=== PATIENT | female | born 1990 | race Caucasian/White ===

== ENCOUNTER 2019-06-14 11:14 | Emergency (ER) | payer OTHER, SELFPAY ==
[2019-06-14 11:15] VITALS: BP 111/73; PULSE 107; RESP 16; TEMP 36.6; O2SAT 97; BMI 25.9
--- NOTE | 2019-06-14 11:47 | US_ITS ---
STUDY: ABDOMINAL ULTRASOUND - RIGHT UPPER QUADRANT REASON FOR VISIT: Female, 29 years old right upper quadrant pain TECHNIQUE: Ultrasound evaluation of the right upper quadrant was performed with real-time and static peterson-scale imaging. TECHNICAL QUALITY: Adequate. COMPARISON: None. FINDINGS: Liver: The liver measures 14.7 cm. There is normal echogenicity of the liver. The bile ducts are within normal limits. There is hepatic color flow. The direction of portal flow is hepatopetal. There is no demonstrated mass lesion. Gallbladder: Normal distended gallbladder. The gallbladder wall measures 3 mm. There is a negative sonographic Bhandari's sign. There is no pericholecystic fluid. There are no gallstones. Common Bile Duct (C.B.D.): The common bile duct measures 2 mm. Pancreas: Normal size of the head, body and tail of the pancreas. There is normal echogenicity of the pancreas. There is no demonstrated pancreatic mass or cyst. Right Kidney: Normal size of the right kidney. The right kidney measures 10.4 cm. Normal renal cortex. The right cortex measures 1.6 cm. There is no demonstrated renal mass or cyst. There is no right hydronephrosis. US/Abdomen Limited IMPRESSION: No acute findings Electronically Signed: Isra Durham DO at 14:04 EDT Tel , Service support ,
[2019-06-14 12:07] LABS: Absolute Lymphocyte Count 1.58 X10^3/uL (0.83-4.51); Absolute Neutrophil Count 4.1 X10^3/uL (2.0-7.7); Basophil# 0.04 X10^3/uL; Basophil% 0.6 % (0-1); Eosinophil# 0.08 X10^3/uL; Eosinophils% 1.3 % (0-5); Hematocrit 43.3 % (37-47); Hemoglobin 14.8 g/dL (12.0-15.0); Lymphocyte # 1.58 X10^3/ul (4.0); Lymphocyte % 24.8 % (19-41); Mean Corp Hgb Conc 34.2 g/dL (32-36); Mean Corpuscular Hgb 33.3 pg (27.0-32.0); Mean Corpuscular Volume 97.5 fL (81-99); Mean Platelet Vol. 10.4 fl (6.2-12.0); Monocyte# 0.52 X10^3/uL; Monocyte% 8.2 % (0-10); NRBC Flagged by Analyzer 0 % (0-5); Neutrophil # 4.14 X10^3/uL (2.7-7.7); Neutrophil % 64.9 % (47-70); Platelet Count 219 K/mm3 (150-450); RBC Distribution Width SD 43.4 fl (35.1-43.9); Red Blood Count 4.44 M/mm3 (4.2-5.4); White Blood Count 6.4 K/mm3 (4.4-11.0)
[2019-06-14] MEDS: proMETHazine 25 MG/ML Syringe 6.25 MG IV (12:11)
[2019-06-14] MEDS: Morphine 4 MG/ML Syringe IV (12:12)
[2019-06-14] MEDS: 0.9% Normal Saline 1,000 ML 125 ML IV (12:13)
[2019-06-14 12:22] LABS: ALB/GLOB Ratio 1.2 RATIO (0.9-2.4); AST(SGOT) 15 U/L (15-37); Alanine Aminotransfer ALT/SGPT 19 U/L (13-56); Alkaline Phosphatase 85 U/L (45-117); Anion Gap 3 (5-15); BUN 7 mg/dL (7-18); BUN/Creat Ratio 10.5 RATIO (10-20); Calcium,Total 9.2 mg/dL (8.5-10.1); Chloride 112 mmol/L (98-107); Creatinine, Serum 0.67 mg/dL (0.55-1.02); EST Glomerular Filtration Rate 110 mL/min (>60); Est Glom Filt Rate - Afr Amer 133 mL/min (>60); Estimated Creatinine Clearance 110.48 ml/min; Globulin 3.3 g/dL (2.2-4.2); Glucose 90 mg/dL (74-106); Lipase 188 U/L (73-393); Potassium 3.5 mmol/L (3.5-5.1); Protein, Total 7.3 g/dL (6.4-8.2); Sodium Level 140 mmol/L (136-145)
[2019-06-14 12:27] LABS: Bacteria 0 SEEN /hpf (None Seen); Color, Urine Yellow (Yellow); Glucose, Dipstick Normal (Normal); Ketone-Dipstick Negative (Negative); Leukocyte Esterase-Dipstick Negative /ul (Negative); Mucous, Urine 0 SEEN /hpf (<or=2+); Nitrite-Dipstick Negative (Negative); Occult Blood-Urine Negative /ul (Negative); Protein-Dipstick Negative (Negative); Red Blood Cells-Urine 0 SEEN /hpf (0-5); Urine Bilirubin Dipstick Negative (Negative); Urine Clarity Clear (Clear); Urine Urobilinogen Normal (Normal); White Blood Cells 0 SEEN /hpf (0-5)
[2019-06-14 12:30] LABS: Internal QC Validated? YES +Cl - CLEAR BKGD; Pregnancy, Urine Negative Negative
[2019-06-14 12:41] LABS: Squamous Epithelial Cells - UA 0-5 SEEN /hpf (5-10)
[2019-06-14 14:18] VITALS: BP 106/65; PULSE 78; RESP 16; O2SAT 99
--- NOTE | 2019-06-14 14:23 | ED.VIS.GI ---
History of Present Illness Informant: Patient, Family - Abdominal Pain/Flank Pain Onset: Yesterday Context: Gradual Onset Timing: Intermittent Quality: Sharp Location: RUQ Current Severity: Moderate Maximum Severity: Severe Worsened by: Food Relieved by: Remaining Still - Nausea/Vomiting/Emesis GI Symptom: Nausea, Vomiting Onset: Today Quality: Nonbilious Severity: Moderate - Diarrhea/Melena/Hematochezia GI Symptom: Diarrhea. Negative for: Melena, Hematochezia Onset: Yesterday Stool Quality: Loose, Watery Severity: Mild Associated Symptoms: Negative for: Dysuria, Frequency, Hematuria, Urgency Narrative: 29-year-old female presents to the emergency department with right upper quadrant abdominal pain. She has been having any symptoms and she had dinner yesterday. They are intermittent sharp and stabbing. In the right upper quadrant rating to her right shoulder. She has had one episode of nonbloody emesis. One episode of loose watery stool. No hematemesis or coffee-ground emesis. No melena or hematochezia. No fevers. No chest pain or shortness of breath. No lightheadedness or dizziness. No coughing or back pain. No urinary symptoms. Prior similar symptoms: Yes Recent Illness/Hospitalization: No <Román Vines - Last Filed: 06/14/19 14:23> <Alvin Valdes - Last Filed: 06/14/19 16:16> Chief Complaint: Abd Pain Past Medical History Prior records reviewed: Yes Past Medical History: - - lupus Surgical History: no surgical history Smoking Status: Current every day smoker <Román Vines - Last Filed: 06/14/19 14:23> <Alvin Valdes - Last Filed: 06/14/19 16:16> - Allergies and Home Meds Allergies/Adverse Reactions: Allergies amoxicillin Allergy (Verified 06/14/19 11:17) Hives Penicillins Allergy (Verified 06/14/19 11:17) Hives omeprazole Adverse Reaction (Verified 06/14/19 11:17) Hives Primary Care Physician: Carlo Rick MD [NON-STAFF] - Care Physician,No Primary [Primary Care Provider] - Review of Systems All systems negative except as indicated General: Denies: Chills, Fever Cardiovascular: Denies: Chest pain Respiratory: Denies: Dyspnea Gastrointestinal: Reports: Abdominal pain, Nausea, Vomiting, Diarrhea Genitourinary: Denies: Dysuria, Hematuria, Frequency <YuriylennyRomán - Last Filed: 06/14/19 14:23> Physical Exam Vital Signs/Narrative: Vital Signs Temp Pulse Resp BP Pulse Ox 06/14/19 14:18 78 16 106/65 99 06/14/19 11:15 98 F 107 H 16 111/73 97 Inital Vital Signs reviewed: Yes General: Well nourished, Well developed, No Acute Distress Head: Normocephalic, Atraumatic Eyes: Perrl, EOMI ENT: Moist mucous membranes Neck: Supple, Nontender Cardiovascular: Regular rate, Regular rhythm, No murmurs Respiratory: No distress, CTA bilaterally, Chest nontender Abdomen: Soft, Nondistended, Normal bowel sounds, No masses, Tender - TTP RUQ. negative alarcon sign Back: Nontender, Normal Inspection Extremities: Nontender, No edema Skin: Normal color, No rash Neurological: Alert, Oriented x3 <YuriylennyRomán - Last Filed: 06/14/19 14:23> Vital Signs/Narrative: Vital Signs Pulse Resp BP Pulse Ox 06/14/19 14:18 78 16 106/65 99 <Alvin Valdes - Last Filed: 06/14/19 16:16> Diagnostic/Tx/Re-eval US: RUQ, Abdomen - Medical Decision Making IV was established. Patient given IV fluids, patient given IV Zofran and morphine. CBC, CMP, and lipase unremarkable Urinalysis negative. Right upper quadrant ultrasound unremarkable. On repeat evaluation patient feels improved. Repeat abdominal exam soft, and nontender. Patient is able to tolerate by mouth. Discussed with patient will need to follow-up with her doctor for continued outpatient work-up including a HIDA scan. Return precautions to the emergency department were reviewed and the patient was discharged <MohinderRomán - Last Filed: 06/14/19 14:23> - Medical Decision Making I discussed management plan with the physician acute care nursing assistant. I reviewed the physician acute care nursing assistant's note and agree with the documented findings and plan of care. Patient presents with right upper quadrant pain. Basic labs are negative. Gallbladder ultrasound negative. Recommend follow-up with primary care for potential HIDA scan. Alvin Valdes DO, MS, FACEP <Alvin Valdes - Last Filed: 06/14/19 16:16> ED Disposition <Román Vines - Last Filed: 06/14/19 14:23> <Alvin Valdes - Last Filed: 06/14/19 16:16> - Plan for ED Patient: Disposition: Home or Assisted Living Diagnosis: Right upper quadrant abdominal pain Instructions: EPIGASTRIC PAIN (Uncertain cause) Referrals: Care Physician,No Primary [Primary Care Provider] - Carlo Rick MD [NON-STAFF] -
== END 2019-06-14 14:47 | disposition home or self-care (01) ==
PROVIDERS: Emergency Provider Physician Assistant Medical
DX: R10.11 Right upper quadrant pain (principal); R11.2 Nausea with vomiting, unspecified; R19.7 Diarrhea, unspecified; M32.9 Systemic lupus erythematosus, unspecified; F17.200 Nicotine dependence, unspecified, uncomplicated; Z88.0 Allergy status to penicillin; Z79.899 Other long term (current) drug therapy
CPT/HCPCS: 76705; 80053; 81001; 81025; 83690; 85025; 96361; 96374; 96375; 99283; J7030; A4216

== ENCOUNTER 2019-08-04 20:28 | Emergency (ER) | payer MEDICAID, SELFPAY ==
[2019-08-04 20:30] VITALS: BP 110/73; PULSE 121; RESP 16; TEMP 36.4; O2SAT 98; BMI 23.4
[2019-08-04 20:54] LABS: Absolute Lymphocyte Count 2.14 X10^3/uL (0.83-4.51); Absolute Neutrophil Count 6.3 X10^3/uL (2.0-7.7); Basophil# 0.05 X10^3/uL; Basophil% 0.5 % (0-1); Eosinophil# 0.08 X10^3/uL; Eosinophils% 0.9 % (0-5); Hematocrit 43.5 % (37-47); Hemoglobin 15.3 g/dL (12.0-15.0); Lymphocyte # 2.14 X10^3/ul (4.0); Lymphocyte % 23.2 % (19-41); Mean Corp Hgb Conc 35.2 g/dL (32-36); Mean Corpuscular Hgb 32.8 pg (27.0-32.0); Mean Corpuscular Volume 93.3 fL (81-99); Mean Platelet Vol. 11.6 fl (6.2-12.0); Monocyte% 6.5 % (0-10); NRBC Flagged by Analyzer 0 % (0-5); Neutrophil # 6.34 X10^3/uL (2.7-7.7); Neutrophil % 68.7 % (47-70); Platelet Count 233 K/mm3 (150-450); RBC Distribution Width CV 11.8 % (11.6-14.6); RBC Distribution Width SD 40.7 fl (35.1-43.9); Red Blood Count 4.66 M/mm3 (4.2-5.4); White Blood Count 9.2 K/mm3 (4.4-11.0)
--- NOTE | 2019-08-04 21:00 | CM.ED ---
SOCIAL WORK PATIENT IS SELF PAY. REI FROM CRISIS HERE AND UPDATED ON PATIENT'S STATUS. CRISIS TO EVALUATE ONCE MEDICALLY CLEARED. Terrell KEVIN, FIRST OFFICER AND FLIGHT INSTRUCTOR, KELLER MACHINE OPERATOR.
[2019-08-04 21:08] LABS: Internal QC Validated? YES +Cl - CLEAR BKGD; Pregnancy, Serum, hCG Quali. NEGATIVE Negative
[2019-08-04 21:11] LABS: Anion Gap 11 (5-15); BUN 16 mg/dL (7-18); BUN/Creat Ratio 27.6 RATIO (10-20); Calcium,Total 9.7 mg/dL (8.5-10.1); Chloride 99 mmol/L (98-107); Creatinine, Serum 0.58 mg/dL (0.55-1.02); EST Glomerular Filtration Rate 129 mL/min (>60); Est Glom Filt Rate - Afr Amer 157 mL/min (>60); Estimated Creatinine Clearance 127.62 ml/min; Glucose 103 mg/dL (74-106); Potassium 2.5 mmol/L (3.5-5.1); Sodium Level 135 mmol/L (136-145)
--- NOTE | 2019-08-04 21:12 | ED.RN ---
POTASSIUM 2.5 PER LAB, MD AND PRIMARY RN NOTIFIED.
[2019-08-04 21:22] LABS: Alcohol, Blood (Medical)-Serum < 3.0 mg/dL
[2019-08-04 21:33] VITALS: RESP 18
[2019-08-04 21:37] LABS: Amphetamine Urine VISTA NEGATIVE (<1000 ng/mL); Barbiturate Urine VISTA NEGATIVE (< 200 ng/mL); Benzodiazepine Urine VISTA NEGATIVE (< 200 ng/mL); Cocaine Urine VISTA NEGATIVE (< 300 ng/mL); Ecstacy Urine VISTA NEGATIVE (< 500 ng/mL); Methadone Urine VISTA NEGATIVE (< 300 ng/mL); PCP Urine VISTA NEGATIVE (< 25 ng/mL); THC Urine VISTA NEGATIVE (< 50 ng/mL); Vista UDS pH Range 6
[2019-08-04 22:00] VITALS: RESP 18
--- NOTE | 2019-08-04 22:24 | ED.VISSUMM ---
- ER Visit Summary Date of Service: 08/04/19 Chief Complaint: Acute on chronic anxiety and depression History of Present Illness: The patient is a 29 F-year-old female history of rheumatoid arthritis, anxiety, PTSD and depression. Her dad has bipolar and her mom schizophrenic. Patient states that she is recently been evicted from her dad's house. She is felt overwhelmed by the whole situation and today was concerned she might overdose. She denies an actual attempt at this time. States she threw her pills away and even put her dog in the dumpster open somewhat when. And take it in case she did feel like she can care for it anymore. She denies writing a suicide note. She was brought in by police and was pink slipped. Physical Examination: Well-appearing 29-year-old female no acute distress. Vital signs stable afebrile. No signs of toxidrome. No smell of alcohol. She is resting in bed sitting calmly. She is awake and alert. She is interactive and acting appropriately. HEENT exam unremarkable. Neck nontender. No trauma. Lungs are clear to auscultation. Heart regular rhythm no murmur. Abdomen is soft and nontender. Normal bowel sounds. She is moving all 4 extremities. Neurovascularly intact. There is no signs of acute trauma. Back nontender. Neurologically she is awake and alert with no focal motor deficits. She is speaking in full sentences. And currently is acting normally. Test Results: CBC normal. White count of 9. Hemoglobin 15. Electrolytes unremarkable except potassium of 2.5. BUN and creatinine. Serum test negative. Tox screen negative. Alcohol less than 3.0. Emergency Department Course and Treatment: Repeat exam unchanged. Patient being evaluated by the counseling center crisis personnel. Treatment Plan: We are speaking with and evaluate the patient crisis personnel also believe she needs to be admitted. And is working on a psychiatric transfer. Disposition: Transfer to a psychiatric facility when placement confirmed Impression: Acute on chronic depression Acute on chronic anxiety and PTSD Suicidal ideation This note was generated with [employer] software. It may contain incorrect words, spelling, and punctuation that were not noted in review of the chart prior to signing ED Disposition - Plan for ED Patient: Referrals: Carlo Rick MD [Primary Care Provider] -
[2019-08-04 23:23] VITALS: BP 127/69; PULSE 103; RESP 18; O2SAT 99
[2019-08-04 23:53] VITALS: RESP 17
[2019-08-05] VITALS (14 sets, daily range): BP systolic 98–123; BP diastolic 58–82; PULSE 81–100; RESP 12–18; O2SAT 95–99
--- NOTE | 2019-08-05 00:15 | EKG12_ITS ---
Test Reason : Blood Pressure : / mmHG Vent. Rate : 097 BPM Atrial Rate : 097 BPM P-R Int : 144 ms QRS Dur : 078 ms QT Int : 360 ms P-R-T Axes : 075 079 055 degrees QTc Int : 457 ms Normal sinus rhythm Possible Left atrial enlargement Borderline ECG Confirmed by FLAVIA GILMORE ([id number]), fashion editor CIRO RODGERS ([id number]) on 08/08/2019 11:21:52 AM Referred By: FERNANDO Confirmed By:FLAVIA GILMORE
[2019-08-05] MEDS: Temazepam 15 MG Capsule PO (00:37)
[2019-08-05] MEDS: busPIRone 5 MG Tablet 10 MG PO ×2 (00:37→06:22)
[2019-08-05 01:27] LABS: Potassium 2.5 mmol/L (3.5-5.1)
--- NOTE | 2019-08-05 01:27 | ED.RN ---
lab called with critical lab results. potassium level 2.5. Dr. Oakley made aware. no new orders at this time
[2019-08-05 01:40] LABS: AST(SGOT) 35 U/L (15-37); Alanine Aminotransfer ALT/SGPT 29 U/L (13-56); Albumin, Serum 3.6 g/dL (3.2-5.0); Alkaline Phosphatase 59 U/L (45-117); Bilirubin, Direct 0.29 mg/dL (0.00-0.30); Globulin 2.8 g/dL (2.2-4.2); Protein, Total 6.4 g/dL (6.4-8.2)
[2019-08-05 01:43] LABS: Magnesium 1.8 mg/dL (1.6-2.6)
--- NOTE | 2019-08-05 06:06 | ED.RN ---
[facility] potassium level is greater then 3.4. Once potassium level is high enough results need faxed. Dr. Oakley made aware.
--- NOTE | 2019-08-05 06:39 | ED.RN ---
crisis called and updated on patients status at this time
[2019-08-05 06:47] LABS: Potassium 3.4 mmol/L (3.5-5.1)
--- NOTE | 2019-08-05 09:07 | NURSING ---
CALLED CRISIS; THEY ARE GOING TO CALL [facility] TO SEE THE STATUS OF THE PT
[2019-08-05] MEDS: Citalopram 40 MG TABLET PO (09:14)
[2019-08-05] MEDS: Pantoprazole Sodium 40 MG Tablet PO (09:14)
[2019-08-05] MEDS: Topiramate 100 MG Tablet PO (09:14)
--- NOTE | 2019-08-05 09:24 | ED.RN ---
PER BHAVANA WITH CRISIS PT IS ACCEPTED TO [facility] JUST HAVE TO WAIT ON A BED. MIGHT BE ABLE TO GET HER THERE TODAY
== END 2019-08-05 13:15 ==
PROVIDERS: Emergency Medicine; Emergency Provider Emergency Medicine; Family Provider Family Medicine; PCP Family Medicine
DX: F32.9 Major depressive disorder, single episode, unspecified (principal); F41.9 Anxiety disorder, unspecified; R45.851 Suicidal ideations; F43.10 Post-traumatic stress disorder, unspecified; E87.6 Hypokalemia; M06.9 Rheumatoid arthritis, unspecified; Z79.899 Other long term (current) drug therapy
CPT/HCPCS: 36415; 80048; 80076; 80307; 80320; 83735; 84132; 84703; 85025; 93005; 99285; G0480

== ENCOUNTER 2019-08-29 15:52 | Emergency (ER) | payer MEDICAID, SELFPAY ==
[2019-08-29 15:53] VITALS: BP 118/73; PULSE 106; RESP 16; TEMP 37; O2SAT 96; BMI 27.7
--- NOTE | 2019-08-29 16:12 | ED.DCSUM_ITS ---
- ER Visit Summary Date of Service: 08/29/19 Chief Complaint: Back pain History of Present Illness: The patient is a 29 F with low back pain for several weeks. On 08/17/19 she fell 2 stories and broke her back. [facility] fusion from L2 to to L4. She has had continued back pain since the fusion. She said she had numbness in her pelvic region which resolved today, but she had a jolt down her left leg today and bilateral leg numbness that was worse today. She attributes this to lifting something heavy. She says she does not know the name of her surgeon and she did not receive any discharge instructions. She denies any changes at her wound site. Denies any GI or symptoms. Denies fever or systemic symptoms. Physical Examination: Afebrile and vital signs unremarkable except for heart rate of 106. Abdomen soft and nontender. Lumbar incision site is clean, dry, intact. Patient reports subjective paresthesias down both of her legs. Good strength. Symmetric pulses. Test Results: We will check x-rays and labs. Emergency Department Course and Treatment: Patient was treated with Dilaudid and Zofran while awaiting results. Patient did not want me to call . She says that they were supposed to fuse L2 to S9, but they only fused L2-L4, and that she does not want to go back there because of this. She requested [facility]. While we were awaiting x-ray and laboratory results, the patient told nursing that she was feeling better and felt like she could walk to the bathroom. She used the bathroom without assistance. When she came back from the bathroom, she eloped from the ED. She told nursing that we were not going to do anything and that we were just going to transfer her. Treatment Plan: As above Disposition: Elopement Impression: 1. Lumbar back pain This note was generated with [employer] dictation software. It may contain incorrect words, spelling, and punctuation that were not noted in review of the chart prior to signing ED Disposition - Plan for ED Patient: Referrals: Carlo Rick MD [Primary Care Provider] -
--- NOTE | 2019-08-29 16:50 | ED.RN ---
PATIENT LEFT AGAINST MEDICAL ADVICE AT 1650. NOTIFIED.
--- NOTE | 2019-08-29 16:55 | ED.RN ---
pt stated she was leaving because we were going to transfger her. pt grabbed her bags and ambulated from er on her own power with steady gait and no distress noted. prior to this pt needed full assistance with any ambulation. physician is aware of the situation.
== END 2019-08-29 16:55 | disposition left against medical advice (07) ==
LOC: ED 16:26
PROVIDERS: Emergency Provider Emergency Medicine; Family Provider Family Medicine; PCP Family Medicine
DX: M54.5 Low back pain (principal); R20.0 Anesthesia of skin; J45.909 Unspecified asthma, uncomplicated; K21.9 Gastro-esophageal reflux disease without esophagitis; Z98.1 Arthrodesis status; Z79.899 Other long term (current) drug therapy
CPT/HCPCS: 99283; J2405

== ENCOUNTER → 2025-04-10 | Outpatient (CLI) | payer MEDICARE, MEDICAID, SELFPAY ==
--- NOTE | 2025-04-10 14:51 | MRI_ITS ---
PROCEDURE: SPINE LUMBAR W/WO CONTRAST 04/10/2025 REASON FOR EXAM: PAIN, HX OF FUSION TECHNIQUE: SPINE LUMBAR W/WO CONTRAST Multiplanar and multisequence images were obtained without and with intravenous gadolinium-based contrast administration. CONTRAST: Magali scan VOLUME: 17 mL FINDINGS: Posterior pedicle screw fusion at L4, L3, L1 and T12 across and L2 compression deformity. No compression of the conus or cauda equina. No retroperitoneal abnormality. At T12-L1 there is no spinal stenosis. At L1 there is mild bony retropulsion and this results in mild acquired spinal stenosis. At L2-3, no central or foraminal compromise. At L3-4 moderate facet arthrosis is noted without central or foraminal compromise At L4-5 ligamentous hypertrophy and concentric bulge results in a mild degree of canal narrowing representing adjacent level pathology. There is bilateral foraminal narrowing worse on the left with bulging disc abutting the left L4 nerve on sagittal image 14 of 17. L5-S1 is unremarkable There is no pathologic enhancement MRI/Spine Lumbar W/WO Contrast IMPRESSION: Mild canal narrowing at L4-5. Prior compression fracture at L2. Prior fusion and decompression. Reading [facility]
== END | disposition home or self-care (01) ==
LOC: MRI 14:49
PROVIDERS: PCP Family Medicine; Referring Provider Student in an Organized Health Care Education/Training Program; Visit Provider Student in an Organized Health Care Education/Training Program
DX: M54.16 Radiculopathy, lumbar region (principal); Z98.1 Arthrodesis status
CPT/HCPCS: 72158; A9575